=== PATIENT | female | born 1955 | race Caucasian/White ===

== ENCOUNTER 2017-01-02 16:10 | Observation (INO) ==
--- NOTE | 2017-01-02 16:22 | Emergency Department Note ---
Disposition Clinical Impression: Chest pain Qualifiers: Chest pain type: unspecified Qualified Code(s): R07.9 - Chest pain, unspecified Headache Qualifiers: Headache type: unspecified Headache chronicity pattern: unspecified pattern Intractability: not intractable Qualified Code(s): R51 - Headache Disposition: Admitted As Inpatient Condition: Fair Referrals: Edmond Vazquez Jr, MD [Primary Care Provider] - Forms: Work/School Release, ED Satisfaction Letter Time of Disposition: 16:24 General Adult HPI - General Chief complaint: ED General Medical Stated complaint: Sent by armando Bar Time Seen by Provider: 01/02/17 16:17 Source: patient Limitations: no limitations Nursing Notes Reviewed: Yes Vital Signs Reviewed: Yes - History of Present Illness HPI Narrative: History 1-year-old who I saw earlier today with the dizziness and some arm of discomfort. We did a CT scan cardiac workup which was negative. The patient went and saw her doctor and they sent her back and wanting her admitted for an MRI of the brain and a stress test. Pt Subjective Complaint: Headache chest pain Onset (ago): day(s) Location: head, chest Radiation: non-radiation Pain Scale: 3 Quality: aching Consistency: constant Improves with: nothing Worsens with: nothing Associated symptoms: Reports: chest pain, headaches Treatments Prior to Arrival: none - Related Data Previous Rx's Medication Instructions Recorded LORazepam [Ativan] 0.5 mg PO TID #9 tablet 02/16/16 Allergies Allergy/AdvReac Type Severity Reaction Status Date / Time codeine Allergy See Verified 01/02/17 16:13 Comments Constitutional: Denies: fever, chills, weakness, weight change Eyes: Denies: eye pain, eye discharge, vision change ENT ED: Denies: ear pain, throat pain, dental pain, hearing loss, epistaxis, congestion, dysphagia Cardiovascular: Reports: chest pain. Denies: palpitations, dyspnea on exertion , edema, syncope Respiratory: Denies: cough, dyspnea, wheezes, hemoptysis, stridor Gastrointestinal: Denies: abdominal pain, nausea, vomiting, diarrhea, constipation, hematemesis, melena, hematochezia Genitourinary: Denies: dysuria, frequency, hematuria, discharge Musculoskeletal: Denies: back pain, neck pain, arthralgia, myalgia Integumentary: Denies: rash, abrasion, lesions Neurological: Reports: headache. Denies: weakness, numbness, paresthesias, confusion, abnormal gait, vertigo Psychiatric: Denies: anxiety, depression, suicidal thoughts, homicidal thoughts , auditory hallucinations, visual hallucinations Endocrine: Denies: fatigue Hematological/Lymphatic: Denies: easy bleeding, easy bruising Allergic/Immunologic: Denies: facial swelling, urticaria Past Medical History - Past Medical History Medical history: Reports: diabetes, hypertension Psychiatric history: Reports: anxiety, depression BREAD RACKER history: Reports: no BREAD RACKER history - Social History Smoking Status: Never smoker Smokeless Tobacco Status: No Alcohol use: Reports: none Drug use: Reports: none Physical Exam - General Limitations: no limitations General appearance: alert, in no apparent distress - Head Head exam: atraumatic, normocephalic, normal inspection - Eye Eye exam: Present: normal appearance, PERRL, EOMI - ENT ENT exam: normal exam, normal oropharynx, mucous membranes moist - Neck Neck exam: Present: normal inspection, full ROM, trachea midline - Chest Chest inspection: Present: normal inspection, symmetric chest wall rise - Respiratory Respiratory exam: Present: normal lung sounds bilaterally - Cardiovascular Cardiovascular exam: Present: regular rate, normal rhythm, normal heart sounds - Abdominal Exam Abdominal exam: Present: soft, Non-Tender. Absent: tenderness, distention, guarding, rebound, rigidity - Extremities Exam Extremities exam: Present: normal inspection, full ROM. Absent: tenderness, pedal edema - Expanded Lower Extremity Exam Neurovascular/Tendon exam: Absent: motor deficit, sensory deficit, tendon deficit Gait: observed and normal - Back Exam Back exam: Present: normal inspection, full ROM. Absent: tenderness - Neurological Exam Neurological exam: Present: alert, oriented X3, normal gait. Absent: motor sensory deficit - Psychiatric Psychiatric exam: Present: normal affect, normal mood - Skin Skin exam: Present: warm, dry, intact, normal color Course - Reevaluation(s) Reevaluation #1: Patient was seen earlier in today for chest pain and headache CT scan was negative cardiac workup was negative recommendations at that time was to admit the patient however the patient declined she went and saw her family doctor and they sent her back in and wanted her to be admitted also wanted an MRI she's had recent memory loss. Time: 16:59 - Consultations Consultation #1: Discussed with Milvia Jiménez, nurse practitioner, admit. Time: 17:00 Vital Signs Temperature 97.8 F 01/02/17 16:13 Pulse Rate 79 01/02/17 16:13 Respiratory Rate 15 01/02/17 16:13 Blood Pressure 146/80 01/02/17 16:13 O2 Sat by Pulse Oximetry 94 01/02/17 16:13 Temperature 97.8 F 01/02/17 16:13 Pulse Rate 79 01/02/17 16:13 Respiratory Rate 15 01/02/17 16:13 Blood Pressure 146/80 01/02/17 16:13 O2 Sat by Pulse Oximetry 94 01/02/17 16:13 Oxygen Delivery Oxygen Delivery Room Air Medical Decision Making - Lab Data Lab results reviewed: Yes I reviewed the patient's lab results. - EKG Data EKG #1 EKG attestation: Yes I reviewed and interpreted this EKG. EKG shows normal: sinus rhythm Rate: normal Rhythm: NSR Interpretation: no acute changes NIH Stroke Scale - Level of Consciousness LOC: Alert - LOC Questions LOC Questions: Answers both correctly - LOC Commands LOC Commands: Performs both correctly - Best Gaze Best Gaze: Normal - Visual Visual: No visual loss - Facial Palsy Facial Palsy: Normal - Motor Arms Motor Arm-Left: No drift for 10 seconds Motor Arm-Right: No drift for 10 seconds - Motor Legs Motor Leg-Left: No drift for 5 seconds Motor Leg-Right: No drift for 5 seconds - Limb Ataxia Limb Ataxia: Normal, No Ataxia - Sensory Sensory: Normal - Best Language Best Language: No aphasia - Dysarthria Dysarthria: Normal - Extinction and Inattention Extinction and Inattention: Normal - NIHSS Total Score NIHSS Total Score: 0
[2017-01-02] MEDS ORDERED: *HR* LORazepam 1 MG TABLET PO ONE (17:51)
[2017-01-02] MEDS ORDERED: Naloxone 0.4 MG/ML INJ IVP PRN (19:44)
[2017-01-02] MEDS ORDERED: Ondansetron 4 MG/2 ML VIAL IVP PRN (19:44)
--- NOTE | 2017-01-02 20:07 | Internal Med History&Physical ---
Date of Encounter: 01/02/17 Time of Encounter: 19:35 Assessment and Plan (1) Tingling of left upper extremity Current visit: Yes Status: Acute Patient has been seen earlier in the day for several complaints. CT of the head is negative and cardiac workup was negative. Patient has been sent back to the ED by her painting supervisor for stress test and MRI of the brain. No focal deficits at this time. Patient has been started on aspirin and statin. Chest x-ray also done this morning is normal. (2) Dizziness Current visit: Yes Status: Acute symptoms of dizziness now improved. Unclear etiology. CT head done in the ED this morning is negative. Stress test has been ordered. No chest pain or shortness of breath. Continue aspirin and statin. (3) Generalized weakness Current visit: Yes Status: Acute (4) Anxiety Current visit: Yes Status: Acute Continue home meds (5) Hypertension Current visit: Yes Status: Acute Controlled continue her medications and monitor. Qualifiers: Hypertension type: essential hypertension Qualified Code(s): I10 - Essential (primary) hypertension (6) Diabetes mellitus Current visit: Yes Status: Acute , Type 2 diabetes, [id number], hyperglycemia. Continue sliding scale and glucose checks. Qualifiers: Diabetes mellitus type: type 2 Diabetes mellitus complication detail: with peripheral angiopathy without gangrene Diabetes mellitus automatic toe laster insulin use : without automatic toe laster use Qualified Code(s): E11.51 - Type 2 diabetes mellitus with diabetic peripheral angiopathy without gangrene (7) DVT prophylaxis Current visit: Yes Status: Acute Continue heparin subcutaneous Internal Medicine - H&P: HPI Admitted From: Emergency Dept History of present illness: Ms. Jones is a 61 year old female with past medical history anxiety, depression , hypertension and diabetes and peripheral neuropathy and hypothyroidism. Patient presented to the ED with complaints of dizziness earlier today. She also had some left arm tingling and discomfort. Initial workup done in view of the CT scan and cardiac workup was negative. Patient was sent back home. Patient went to see her painting supervisor later in the day. She told her physician about her complaints including dizziness nausea and left arm tingling and discomfort. Patient was advised to the ED for a stress test and an MRI of the brain. Patient at present denies chest pain, denies denies shortness of breath or abdominal pain or headache. She complains of mild dizziness and nausea this time. She also complains of generalized weakness. Labs done this morning in the ED are within normal limits and a CT of the head is normal. Patient is being admitted for MRI of the brain and also stress test. Patient can most likely discharged if this is negative. She has no other complaints at present. EKG shows normal sinus rhythm. Patient is awake and alert and able to provide all history. Past Med Surg Social Fam HX - Past Medical History Medical history: diabetes, hypertension Psychiatric history: anxiety, depression - Past Surgical History Surgical History: cataract (b/l), hysterectomy, knee replacement (left - 8 weeks ago) - Social History Smoking Status: Never smoker Smokeless Tobacco Status: No Alcohol use: none Drug use: none - Family History Mother Hx Family Cancer: Yes (uterine) Sister Living Status: Still Living Hx Family Cardiac Disorders: Yes Internal Medicine - H&P: Meds Diclofenac Sodium [Voltaren] 75 mg PO BID 01/02/17 [History] Duloxetine HCl [Cymbalta] 60 mg PO DAILY 01/02/17 [History] Furosemide [Lasix] 40 mg PO DAILY 01/02/17 [History] Gabapentin [Neurontin] 800 mg PO BID 01/02/17 [History] Levothyroxine [Synthroid] 88 mcg PO 0630 01/02/17 [History] Metformin HCl [Metformin HCl ER] 1,000 mg PO QPM 01/02/17 [History] Metoprolol XL (24 HR) Succ [Toprol XL] 50 mg PO DAILY 01/02/17 [History] Potassium Chloride [K-Tab ER] 20 meq PO DAILY 01/02/17 [History] Allergies codeine Allergy (Verified 01/02/17 16:13) See Comments severe stomach pains All Systems PM: A 10-system review of systems was performed and is negative for pertinent findings except as documented above in the HPI. - Constitutional Constitutional: as per HPI, weakness - EENT Eyes: no blurry vision, no change in vision, no loss of vision - Cardiovascular Cardiovascular ROS IM: lightheadedness, no chest pain, no dyspnea, no dyspnea on exertion - Respiratory Respiratory: no cough, no dyspnea, no hemoptysis, no dyspnea on exertion, no wheezing, no chest congestion - Gastrointestinal Gastrointestinal: no abdominal pain, no bloating, no constipation, no diarrhea - Musculoskeletal Musculoskeletal ROS IM: arthralgias - Neurological Neurological ROS: memory loss, tingling (Left arm), no abnormal gait, no abnormal speech, no focal weakness, no loss of vision, no numbness - Psychiatric Psychiatric: as per HPI - Constitutional Vitals: Temp Pulse Resp BP Pulse Ox 98.2 F 78 15 115/70 96 01/02/17 19:53 01/02/17 19:53 01/02/17 19:53 01/02/17 19:53 01/02/17 19:53 General appearance: Present: A&O X 3, morbidly obese, no acute distress, answers questions appropriately - Head Head exam: Present: atraumatic - ENT ENT exam: Present: mucous membranes moist - Neck Neck exam general surgery: Present: supple - Respiratory Respiratory exam: Present: CTAB. Absent: rhonchi, wheezes - Cardiovascular Cardiovascular exam: Present: RRR, +S1, +S2 - GI/Abdominal GI/Abdominal exam: Present: distended (obese), soft. Absent: guarding, tenderness - Extremities Exam Extremities exam: Present: radial pulses palpable and symetrical. Absent: cyanotic, pedal edema, tenderness - Neurological Exam Neurological exam: Present: alert, oriented X3, no focal deficits, strengths equal and symetr throughout. Absent: speech deficit
[2017-01-02] MEDS ORDERED: D5% in Water 1,000 ML IVC PRN (20:18)
[2017-01-02] MEDS ORDERED: Dextrose Gel 15 GM PO PRN ×2 (20:18)
[2017-01-02] MEDS ORDERED: *HR* Dextrose 50 % in Water (Syg) 50 ML SYRINGE IVP PRN (20:18)
[2017-01-02] MEDS: Famotidine 20 MG TABLET PO SCH (22:15)
[2017-01-02] MEDS: *HR* Heparin 5,000 UNIT/ML VIAL SQ SCH (22:15)
[2017-01-02] MEDS: Aspirin 325 MG TABLET PO SCH (22:15)
[2017-01-03 04:10] LABS: Basophils % 0.5 %; Eosinophils # 0.3 K/mcL (0.0-0.6); Eosinophils % 3.1 %; Hematocrit 36.7 % (35.3-44.9); Hemoglobin 11.6 g/dL (11.5-15.4); Immature Granulocytes % 0.3 % (0-4); Immature Platelets 2.9 % (1.1-6.1); Lymphocytes # 2.8 K/mcL (0.6-4.6); Lymphocytes % 31.4 %; Mean Corpuscular HGB Conc 31.6 g/dL (31.6-35.5); Mean Corpuscular Hemoglobin 30.3 pg (28.0-33.3); Mean Corpuscular Volume 95.8 fL (83.0-100.0); Mean Platelet Volume 9.6 fL (9.4-12.4); Monocytes # 0.6 K/mcL (0.0-1.3); Monocytes % 6.6 %; Neutrophils # 5.1 K/mcL (1.6-8.9); Platelet Count 207 K/mcL (140-400); Red Blood Count 3.83 M/mcL (3.82-4.97); Red Cell Distribution Width 13.3 % (11.5-14.5); Segmented Neutrophils % 58.1 %
[2017-01-03 04:24] LABS: BUN/Creatinine Ratio 15 (6-26); Blood Urea Nitrogen 17 mg/dL (7-20); Calcium 9.3 mg/dL (8.6-10.8); Carbon Dioxide 27 mEq/L (19-29); Chloride 103 mEq/L (98-109); Chol/HDL Ratio 7.1 (0-4.9); Cholesterol 170 mg/dL (< 200); Glucose 202 mg/dL (70-99); HDL Cholesterol 24 mg/dL (40-59); Osmolality,Calculated 293 (280-300); Potassium 3.7 mEq/L (3.5-4.5); Sodium 138 mEq/L (136-145); Triglycerides 473 mg/dL (< 150); eGFR For African Americans 59 (> 60); eGFR For Non-African Americans 49 (> 60)
[2017-01-03] MEDS: *HR* Heparin 5,000 UNIT/ML VIAL SQ SCH ×3 (05:25→20:49)
[2017-01-03] MEDS: Insulin LISPRO 300 UNITS/3 ML VIAL SQ SCH ×4 (06:02→18:18)
[2017-01-03] MEDS ORDERED: Regadenoson 0.4 MG/5 ML SYRINGE IVP ONE (06:28)
[2017-01-03] MEDS: Metoprolol XL (24 HR) Succ 50 MG TAB.ER.24H PO SCH (12:19)
[2017-01-03] MEDS: Famotidine 20 MG TABLET PO SCH ×2 (12:20→20:49)
[2017-01-03] MEDS: Acetaminophen 325 MG TABLET PO PRN (12:20)
[2017-01-03] MEDS: Furosemide 40 MG TABLET PO SCH (12:20)
[2017-01-03] MEDS: Aspirin 325 MG TABLET PO SCH (12:20)
--- NOTE | 2017-01-03 14:25 | Electrocardiograph Report ---
[address] [address] Test Date: 2017-01-02 Pat Name: Yesenia Jones Department: 105 Room: 3B21 Gender: F Java Web Architect: : 1955 Requested By: Taras Montenegro Order Number: [id number] Reading MD: Mode Ortiz MD Measurements Intervals [place] Rate: 79 P: 62 MT: 140 QRS: 19 QRSD: 95 T: 47 QT: 372 QTc: 406 Interpretive Statements SINUS RHYTHM BASELINE ARTIFACT Electronically Signed On 01-03-2017 14:23:15 EDT by Mode Ortiz MD
--- NOTE | 2017-01-03 15:54 | Internal Med Progress Note ---
Date of Encounter: 01/03/17 Time of Encounter: 09:00 - Assessment and plan (1) Tingling of left upper extremity Current Visit: Yes Status: Acute Assessment and plan: Patient reports that 2 nights ago she does not pronate and had not been to sleep. She said that she felt "antsy". Yesterday at 5 AM she got up to take some Tylenol PM, shiny and having left arm pain, then left hand was tingly. She said the pain radiated up her arm into her left neck, and into her left chest. She did report shortness of breath, chest heaviness and headache prior to the onset of the arm pain. She said that anytime she made it to the emergency room she was having dry heaves. She reports that she has independently decreased her gabapentin from 1600 mg a day to 800 mg a day, yesterday was day 7.. She presented to the emergency department for these symptoms, it was recommended that she was admitted. She decided to leave and go to see Dr. Hoffman, with whom she had an appointment anyway. Dr. Hoffman sent her immediately back to the emergency department for evaluation of the chest pain and admission and for rain MRI and stress test. She has no tingling or pain in her left arm now. She denies headache. She denies any anxiety symptoms at all. Grasps are strong and equal bilaterally. She is neurologically intact, face is symmetrical. (2) Paresthesia Current Visit: Yes Status: Acute Assessment and plan: Plan as above. Resolved currently. (3) Chest pain Current Visit: Yes Status: Acute Assessment and plan: Plan as above. Patient denies chest pain now. Stage II a stress test tomorrow. Qualifiers: Chest pain type: unspecified Qualified Code(s): R07.9 - Chest pain, unspecified (4) Anxiety Current Visit: Yes Status: Acute Assessment and plan: Plan as above. 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 She also reports that she has independently, and without medical supervision decreased her gabapentin from 1600 mg a day to 800 mg a day. She said that yesterday was day 7. She does say that she feels that all the symptoms are related to anxiety and decreasing the gabapentin. She reports recent memory loss. She also blames on the gabapentin. She says that she has to be able to take care of her cannot be heavily medicated. There is not eligible for home health or any kind of assistance due to income. Social service consult is in. (5) Diabetes mellitus Current Visit: Yes Status: Acute Assessment and plan: Diabetic diet A1c 7% Sliding scale insulin Accu-Cheks before meals and at bedtime Qualifiers: Diabetes mellitus type: type 2 Diabetes mellitus complication detail: with peripheral angiopathy without gangrene Diabetes mellitus custodial insulin use : without custodial use Qualified Code(s): E11.51 - Type 2 diabetes mellitus with diabetic peripheral angiopathy without gangrene (6) ROXANE (acute kidney injury) Current Visit: Yes Status: Acute Assessment and plan: No history. Creatinine is only slightly elevated at 1.13. GFR is 49. We will continue to monitor her labs Avoid nephrotoxins (7) DVT prophylaxis Current Visit: Yes Status: Acute Assessment and plan: Heparin subcutaneous daily. - Time Spent With Patient less than 15 minutes - Subjective Interval history: Patient was seen and assessed at about 9 AM. This morning at 5 AM she began having pain in her left arm, then her left hand became tingly. She reports that the pain went into her left neck and left chest. She reported shortness of breath, chest heaviness, and frontal headache prior to the onset of the arm pain at 5 AM. At 5 AM she awakened and took 2 Tylenol PM and attempted to go back to sleep. She said that she has been "antsy" and had been up all night had not slept at all. Yesterday was day 7 of her independently decreasing her gabapentin from 1600 mg a day to 800 mg a day. She also reports that she has been having increasing forgetfulness and memory loss over the last few months. She says that Dr. Hoffman does not believe that it is due to the gabapentin, however patient has decided to wean herself off the gabapentin. She may have done this to fast causing some withdrawal symptoms. She was seen in the emergency department yesterday, he was recommended that she be admitted for further evaluation for chest pain. Patient left and insisted on seeing Dr. Hoffman instead. Once at Dr. Willard's office, she has that the patient come back for MRI of the head and a stress test. Patient is having a 2 day stress test. She currently denies any numbness, tingling, or pain to left arm. There is no chest pain. - Constitutional Vitals: Temp Pulse Resp BP Pulse Ox 97.4 F L 74 16 162/84 94 01/03/17 15:42 01/03/17 15:42 01/03/17 15:42 01/03/17 15:42 01/03/17 15:42 General appearance: Present: cooperative, A&O X 3, morbidly obese, no acute distress, answers questions appropriately - Head Head exam: Present: normal inspection - Eye Eye exam: Present: normal appearance, conjuntiva pink - ENT ENT exam: Present: mucous membranes moist, normal exam - Neck Neck exam general surgery: Present: normal inspection. Absent: lymphadenopathy , tenderness - Respiratory Respiratory exam: Present: CTAB. Absent: chest wall tenderness, rales, rhonchi , stridor, wheezes - Cardiovascular Cardiovascular exam: Present: RRR, +S1, +S2. Absent: bradycardia, diastolic murmur, systolic murmur, tachycardia - GI/Abdominal GI/Abdominal exam: Present: normal bowel sounds, soft. Absent: hepatomegaly, tenderness - Extremities Exam Extremities exam: Present: normal inspection, warm, radial pulses palpable and symetrical. Absent: pedal edema, tenderness - Neurological Exam Neurological exam: Present: alert, oriented X3, strengths equal and symetr throughout. Absent: motor sensory deficit, no focal deficits, pronater drift, facial droop, speech deficit - Skin Skin exam: Present: dry, normal color, warm. Absent: rash Internal Medicine: Result - Labs CBC & Chem 7: 01/03/17 03:53 01/03/17 03:53 Labs: Short CBC 01/03/17 Range/Units 03:53 WBC 8.8 (4.3-11.1) K/mcL Hgb 11.6 (11.5-15.4) g/dL Hct 36.7 (35.3-44.9) % Plt Count 207 (140-400) K/mcL Neutrophils # 5.1 (1.6-8.9) K/mcL BMP 01/03/17 03:53 Sodium 138 Potassium 3.7 Chloride 103 Carbon Dioxide 27 BUN 17 Creatinine 1.13 H Glucose 202 H Calcium 9.3 Cardiac Enzymes 01/02/17 01/03/17 Range/Units 20:23 03:53 Troponin I 0.00 0.00 (0-0.03) ng/mL - Impressions Impressions Brain MRI 01/03/17 08:34 IMPRESSION: Normal MRI of the brain. D/ / Thad Smallwood MD / Thad Smallwood MD Interpreting Provider: Thad Smallwood MD Consult Discharge Plan - Plan Referrals: Edmond Vazquez Jr, MD [Primary Care Provider] -
[2017-01-04] MEDS: Insulin LISPRO 300 UNITS/3 ML VIAL SQ SCH ×3 (00:09→12:18)
[2017-01-04] MEDS: Acetaminophen 325 MG TABLET PO PRN ×2 (00:18→09:31)
[2017-01-04 03:50] LABS: Basophils % 0.5 %; Eosinophils # 0.2 K/mcL (0.0-0.6); Eosinophils % 2.3 %; Hematocrit 38.5 % (35.3-44.9); Hemoglobin 12.3 g/dL (11.5-15.4); Immature Granulocytes % 0.4 % (0-4); Lymphocytes # 2.7 K/mcL (0.6-4.6); Lymphocytes % 32.9 %; Mean Corpuscular HGB Conc 31.9 g/dL (31.6-35.5); Mean Corpuscular Hemoglobin 30.5 pg (28.0-33.3); Mean Corpuscular Volume 95.5 fL (83.0-100.0); Mean Platelet Volume 9.9 fL (9.4-12.4); Monocytes # 0.6 K/mcL (0.0-1.3); Monocytes % 7.3 %; Neutrophils # 4.7 K/mcL (1.6-8.9); Platelet Count 206 K/mcL (140-400); Red Blood Count 4.03 M/mcL (3.82-4.97); Red Cell Distribution Width 13.4 % (11.5-14.5); Segmented Neutrophils % 56.6 %
[2017-01-04 04:09] LABS: BUN/Creatinine Ratio 15 (6-26); Blood Urea Nitrogen 15 mg/dL (7-20); Calcium 9.4 mg/dL (8.6-10.8); Carbon Dioxide 27 mEq/L (19-29); Chloride 104 mEq/L (98-109); Glucose 148 mg/dL (70-99); Osmolality,Calculated 294 (280-300); Sodium 140 mEq/L (136-145); eGFR For African Americans > 60 (> 60); eGFR For Non-African Americans 58 (> 60)
[2017-01-04] MEDS: *HR* Heparin 5,000 UNIT/ML VIAL SQ SCH (05:52)
[2017-01-04] MEDS: Metoprolol XL (24 HR) Succ 50 MG TAB.ER.24H PO SCH (09:31)
[2017-01-04] MEDS: Furosemide 40 MG TABLET PO SCH (09:32)
[2017-01-04] MEDS: Famotidine 20 MG TABLET PO SCH (09:32)
[2017-01-04] MEDS: Aspirin 325 MG TABLET PO SCH (09:32)
[2017-01-04] MEDS ORDERED: Gabapentin 400 MG CAPSULE PO SCH (10:15)
[2017-01-04] MEDS ORDERED: Diclofenac Sodium 75 MG TABLET PO SCH (10:15)
[2017-01-04 11:17] VITALS: BP 161/82
--- NOTE | 2017-01-04 12:18 | Nuclear Medicine Stress Report ---
Regadenoson Nuclear Stress Name: Yesenia Jones Date of Study: 01/03/2017 Date: 1955 Ht: 61.0 in Medical Record#: [id number] Age: 61 Wt: 272.0 lb Gender: Female Order #: [id number] Location: [facility] Room: [facility] Supervising Provider: Kennedy Cordova CNP Reading Physician: Jonathan Siddiqui MD, [facility] Ordering Physician: Leonila Hernandes CNP Primary Care Physician: Edmond Vazquez MD Stress Technologist: Malka Dalal MUTUEL CASHIER, CCT Dough Sheeter: Tima Singh Indications: Chest Pain Impression: Gated LVEF > 70%. Perfusion imaging was negative for ischemia or infarct. History: Hypertension Diabetes Hypercholesteremia Stress Test Summary: Stress Test Type: Pharmacologic Regadenoson 0.4mg/5ml given IV Baseline Information: Initial Heart Rate: 83 Blood Pressure: 132/60 Stress Information: Test Terminated Due to (primary): As per protocol Maximum Blood Pressure: 156/66 Maximum Heart Rate: 93 Percent Maximum Heart Rate Achieved: 58 Double Product: [id number] Symptoms: No chest symptoms Nuclear Summary: SPECT myocardial perfusion imaging using Tc99m Sestamibi given intravenously was performed at rest and following cardiac stress testing. The resting images were obtained following initial dose of 33 mCi. Following stress an additional dose of 33.6 mCi was given at peak exercise or 30 seconds post regadenoson infusion. Findings: Stress Note * Resting ECG demonstrated normal sinus rhythm. * No baseline arrhythmias were noted. * Patient had no chest pain during stress. * No arrhythmias were noted during stress. * No significant ECG changes with regadenoson. Hemodynamic responses * Normal hemodynamic responses to pharmacologic stress. Study Quality * Study quality is good. Gated EF > 70% * Gated LVEF > 70%. Left Ventricle * The left ventricle is not dilated. * Normal Segmental Perfusion in rest. * Normal segmental perfusion in stress. TID * No evidence of transient ischemic dilatation. Updated by Jonathan Siddiqui MD, [facility] on 01/04/2017 12:14:06 PM electronically signed on 01/04/2017 12:14:38 PM with status of Final
--- NOTE | 2017-01-04 13:00 | Discharge Summary ---
Date of Encounter: 01/04/17 Time of Encounter: 09:50 - Discharge Diagnosis (1) Tingling of left upper extremity Priority: Primary Status: Resolved Comments: Pt denies tingling or pain to LUE. Sensation and strength are at baseline. Pt has +1 left radial pulse and brisk capillary refill with adequate ROM. Most likely due to medication withdrawl and anxiety. Patient had normal MRI of the brain. Resolved. Brain MRI 01/03/17 08:34 IMPRESSION: Normal MRI of the brain. D/ / Thad Smallwood MD / Thad Smallwood MD Interpreting Provider: Thad Smallwood MD (2) Paresthesia Priority: Secondary Status: Resolved Comments: Resolved. (3) Chest pain Priority: Secondary Status: Acute Comments: Pt denies chest pain. Stress test completed and resulted today. Gated LVEF 70%, perfusion imaging was negative for ischemia or infarct. Troponins negative x 3, Chest xray negative for acute processes. Qualifiers: Chest pain type: unspecified Qualified Code(s): R07.9 - Chest pain, unspecified (4) Anxiety Priority: Secondary Status: Acute Comments: Patient agrees that she is under a lot of stress and has anxiety. She is caring for her who is primarily bedridden at home. She is also very concerned about finances at home. She will continue her Cymbalta at home. (5) Diabetes mellitus Priority: Secondary Status: Chronic Comments: A1c 7%. Continue home medications. Qualifiers: Diabetes mellitus type: type 2 Diabetes mellitus complication detail: with peripheral angiopathy without gangrene Diabetes mellitus bariatric physician insulin use : without bariatric physician use Qualified Code(s): E11.51 - Type 2 diabetes mellitus with diabetic peripheral angiopathy without gangrene (6) ROXANE (acute kidney injury) Priority: Secondary Status: Resolved Comments: Creatinine is returning to normal, BUN is 58 today. (7) DVT prophylaxis Priority: Secondary Status: Acute Comments: Heparin subcutaneous daily (8) Medication withdrawal Priority: Secondary Status: Acute Comments: Patient reports that she felt her gabapentin was causing her to become increasingly forgetful. She independently began decreasing her gabapentin from 1600 mg today to 800 mg a day. On the day of arrival to the emergency department was 7. She said that she had been not sleeping well and that she felt "antsy" all night and began having the left arm pain, chest pain, left arm tingling. She said that her pain has increased since decreasing the medication , which was also causing some anxiety. Apparently for the last 2 days when she has been in the hospital she has not been getting any gabapentin, whatsoever. She says that Dr. Hoffman encouraged her to go back up to 1600 mg, however she wanted to stay at 800 mg. We have changed it to 400 mg by mouth twice daily after discussion with the patient. Qualifiers: Substance type: other psychostimulant Qualified Code(s): F15.93 - Other stimulant use, unspecified with withdrawal - Discharge Medications Prescriptions: Gabapentin [Neurontin] 400 mg PO BID #30 capsule Home Medications: Diclofenac Sodium [Voltaren] 75 mg PO BID 01/02/17 [History] Duloxetine HCl [Cymbalta] 60 mg PO DAILY 01/02/17 [History] Furosemide [Lasix] 40 mg PO DAILY 01/02/17 [History] Levothyroxine [Synthroid] 88 mcg PO 0630 01/02/17 [History] Metformin HCl [Metformin HCl ER] 1,000 mg PO QPM 01/02/17 [History] Metoprolol XL (24 HR) Succ [Toprol Xl] 50 mg PO DAILY 01/02/17 [History] Potassium Chloride [K-Tab ER] 20 meq PO DAILY 01/02/17 [History] Gabapentin [Neurontin] 400 mg PO BID #30 capsule 01/04/17 [Rx] Allergies/Adverse Reactions: Allergies codeine Allergy (Verified 01/02/17 16:13) See Comments severe stomach pains Procedures/tests Complete & Pending: Procedures Performed prior 72 hours Category Date Time Status NM baltazar perf SPECT multi [NM] Routine Exams 01/02/17 19:48 Taken MR head/brain wo con [MR] Routine MRI 01/03/17 08:34 Completed ECG 12 lead ECG [ECG] AM 0600 Y 01/03/17 06:00 Ordered SP pharm nuclear stress Routine Y 01/03/17 07:10 Completed Date of admission: 01/02/17 18:18 Primary care physician: Edmond Vazquez Jr, MD Consults: 01/02/17 21:06 Consult to Physical Therapy [CONS] Routine Comment: Evaluate, develop and implement POC Reason for Consult: BALBIR esquivel 01/02/17 21:18 Consult to Certified Medical Coder [CONS] Routine Reason for SW Consult: FINANCIAL CONCERNS WITH STAY, CARE FOR OTHER AT HOME. Discharging clinician: Leonila Hernandes Anticipated date of discharge: 01/04/17 - Patient Status Disposition: Home, Self-Care Condition: Good Functional capacity at discharge: independent ambulation Overall status at discharge: patient is back to baseline - Discharge Instructions Follow Up With: Edmond Vazquez Jr, MD [Primary Care Provider] - 01/11/17 11:00 am Additional Instructions: Follow up with Dr. Hoffman and Dr. Vazquez within the next week to 10 days for a follow up. You will need to ask them for a refill for your Gabapentin, I gave you enough for 2 weeks. Resume the rest of your home medications. Return to the ER for any other problems or concerns or if your symtpoms return. - Diet and Activity Activity: increase activity as tolerated Diet: diabetic diet Interval History: Pt presented to the ED on 01/02/17 with c/o L arm pain that radiated into L shoulder, neck, and chest, L arm tingling, SOG, chest heaviness, and headache. Pt states that she had been "antsy" all night and she got up at 0500 to take some Tylenol PM to help her sleep when her symptoms began. She said that she slept for a while, awakened and was still having symptoms and by the time she made it to the ER she was dry heaving. She reports increased stress at home and that she is the sole caregiver for her who is bed-ridden. She states that they are both on disability and that they are having a hard time with bills. She reports that she has had increasing memory loss over the last year and that she feels like it is due to her high dose of Gabapentin. She independently decreased her dose from 1600mg/day to 800/mg day in an attempt to stop taking it altogheter. She says that her pain had increased, which seemed to cause her some anxiety. Most likely the cause of the tinlging, pain, headache is due to anxiety and medication withdrawl. Pt was in the ED twice the day of admission, the first time she left AMA to go to see Dr. Hoffman, who sent her back to the ED for admission, stress test, and brain MRI. MRI was negative, stress test imaging was negative for ischemia or infarct, gated EF >70%. All of pt's symptoms have resolved. She is alert and engaging, pleasant, physical exam is unremarkable. Labs are WNL other than triglycerides, that have had a significant increase since August. We discussed not totally stopping her Gabapentin. She states that Dr. Hoffman wants her to incresase it to 1600mg/day, as it was. Pt wishes to stay at 800mg/ day. We agreed on dividing it into 2 doses and she will speak with Dr. Hoffman about increasing or stopping it at the next visit. Pt is pain free and ready for discharge. Hospital course: Ms. Jones is a 61 year old female - Time Spent with Patient Total time spent providing and/or coordinating discharge services: Less than 30 minutes - Constitutional Vitals: Temp Pulse Resp BP Pulse Ox 97.8 F 71 13 161/82 93 01/04/17 11:16 01/04/17 11:16 01/04/17 11:16 01/04/17 11:16 01/04/17 11:16 General appearance: Present: cooperative, A&O X 3, morbidly obese, pleasant, no acute distress, answers questions appropriately - Head Head exam: Present: normal inspection - Eye Eye exam: Present: normal appearance, conjuntiva pink. Absent: nystagmus - ENT ENT exam: Present: mucous membranes moist, normal exam, normal external ear exam - Neck Neck exam general surgery: Present: normal inspection. Absent: lymphadenopathy , tenderness - Respiratory Respiratory exam: Present: CTAB. Absent: rales, respiratory distress, rhonchi, wheezes - Cardiovascular Cardiovascular exam: Present: RRR, +S1, +S2. Absent: diastolic murmur, systolic murmur - GI/Abdominal GI/Abdominal exam: Present: distended, normal bowel sounds, soft, splenomegaly. Absent: hepatomegaly, tenderness - Extremities Exam Extremities exam: Present: normal capillary refill, warm, radial pulses palpable and symetrical. Absent: pedal edema, tenderness - Neurological Exam Neurological exam: Present: alert, oriented X3, no focal deficits, strengths equal and symetr throughout. Absent: facial droop, speech deficit - Skin Skin exam: Present: dry, normal color, warm. Absent: rash
[2017-01-04] MEDS ORDERED: Insulin LISPRO 300 UNITS/3 ML VIAL SQ SCH ×2 (16:30→21:00)
== END 2017-01-04 14:17 | disposition home or self-care (01) ==
LOC: EMEROO 16:10 → 3BNU 16:10
PROVIDERS: ADMIT Registered Nurse; ATTEND Registered Nurse

== ENCOUNTER 2021-03-17 04:18 | Observation (INO) ==
[2021-03-17 05:03] LABS: Basophils % 0.3 %; Eosinophils # 0.1 K/mcL (0.0-0.6); Eosinophils % 1.2 %; Hematocrit 38.8 % (35.3-44.9); Immature Granulocytes % 0.3 % (0-4); Lymphocytes # 1.7 K/mcL (0.6-4.6); Lymphocytes % 19.5 %; Mean Corpuscular HGB Conc 30.9 g/dL (31.6-35.5); Mean Corpuscular Hemoglobin 26.8 pg (28.0-33.3); Mean Corpuscular Volume 86.8 fL (83.0-100.0); Mean Platelet Volume 9.9 fL (9.4-12.4); Monocytes # 0.7 K/mcL (0.0-1.3); Monocytes % 7.9 %; Neutrophils # 6.2 K/mcL (1.6-8.9); Platelet Count 158 K/mcL (140-400); Red Blood Count 4.47 M/mcL (3.82-4.97); Red Cell Distribution Width 15.8 % (11.5-14.5); Segmented Neutrophils % 70.8 %; White Blood Count 8.8 K/mcL (4.3-11.1)
[2021-03-17 05:24] LABS: BUN/Creatinine Ratio 16 (6-26); Blood Urea Nitrogen 15 mg/dL (8-23); Calcium 9.6 mg/dL (8.6-10.3); Carbon Dioxide 26 mEq/L (23-29); Chloride 99 mEq/L (98-107); Glucose 293 mg/dL (70-105); Osmolality,Calculated 290 (280-300); Potassium 3.9 mEq/L (3.5-5.1); Sodium 134 mEq/L (136-145); eGFR For African Americans > 60 (> 60); eGFR For Non-African Americans > 60 (> 60)
[2021-03-17 05:25] LABS: Troponin I < 0.03 ng/mL (< 0.04)
[2021-03-17 07:00] LABS: INR 1.1; Prothrombin Time 12.5 Seconds (9.4-12.1)
[2021-03-17 08:14] LABS: Influenza A PCR Negative (Negative); Influenza B PCR Negative (Negative); Resp. Syncytial Virus PCR Negative (Negative)
[2021-03-17 08:20] LABS: SARS-CoV-2 by PCR (In House) Negative (Negative)
[2021-03-17] MEDS ORDERED: Aspirin 325 MG TABLET PO ONE (09:30)
[2021-03-17] MEDS ORDERED: Naloxone 0.4 MG/ML INJ IVP PRN (10:11)
[2021-03-17] MEDS ORDERED: Regadenoson 0.4 MG/5 ML SYRINGE IVP ONE (12:09)
[2021-03-17 14:31] VITALS: BP 166/80; PULSE 84; TEMP 98.5; O2SAT 96
[2021-03-18 12:11] LABS: Estimated Average Glucose 217 mg/dl; Hemoglobin A1C 9.2 %
== END 2021-03-17 15:20 | disposition home or self-care (01) ==
LOC: CDU 04:18 → EMEROOARM 04:18 → CDU 12:03
PROVIDERS: ADMIT Internal Medicine; ATTEND Internal Medicine

== ENCOUNTER 2021-04-06 23:31 | Inpatient (IN) ==
[2021-04-07 00:09] LABS: Basophils % 0.3 %; Eosinophils % 0.3 %; Hematocrit 33.8 % (35.3-44.9); Hemoglobin 10.8 g/dL (11.5-15.4); Immature Granulocytes % 0.5 % (0-4); Lymphocytes # 0.7 K/mcL (0.6-4.6); Lymphocytes % 17.5 %; Mean Corpuscular Hemoglobin 27.6 pg (28.0-33.3); Mean Corpuscular Volume 86.4 fL (83.0-100.0); Mean Platelet Volume 10.6 fL (9.4-12.4); Monocytes # 0.3 K/mcL (0.0-1.3); Monocytes % 7.6 %; Neutrophils # 2.9 K/mcL (1.6-8.9); Platelet Count 103 K/mcL (140-400); Red Blood Count 3.91 M/mcL (3.82-4.97); Red Cell Distribution Width 16.7 % (11.5-14.5); Segmented Neutrophils % 73.8 %
[2021-04-07 00:21] LABS: BUN/Creatinine Ratio 14 (6-26); Blood Urea Nitrogen 11 mg/dL (8-23); Calcium 8.4 mg/dL (8.6-10.3); Carbon Dioxide 24 mEq/L (23-29); Chloride 99 mEq/L (98-107); Glucose 329 mg/dL (70-105); Osmolality,Calculated 288 (280-300); Potassium 4.1 mEq/L (3.5-5.1); Sodium 133 mEq/L (136-145); eGFR For African Americans > 60 (> 60); eGFR For Non-African Americans > 60 (> 60)
[2021-04-07 00:22] LABS: Troponin I < 0.03 ng/mL (< 0.04)
[2021-04-07] MEDS ORDERED: Isovue-370 500 ML BOTTLE IVP ONE (02:22)
[2021-04-07] MEDS ORDERED: Naloxone 0.4 MG/ML INJ IVP PRN (03:00)
[2021-04-07] MEDS ORDERED: Ondansetron 4 MG/2 ML VIAL IVP PRN (03:00)
[2021-04-07] MEDS ORDERED: Ipratropium 1 PUFF INHALER IH PRN (03:01)
[2021-04-07] MEDS ORDERED: D5% in Water 1,000 ML IVC PRN (03:22)
[2021-04-07] MEDS ORDERED: Dextrose Gel 15 GM/37.5 ML TUBE PO PRN ×2 (03:22)
[2021-04-07] MEDS ORDERED: *HR* Dextrose 50 % in Water (Syg) 50 ML SYRINGE IVP PRN (03:22)
[2021-04-07] MEDS ORDERED: Insulin DETEMIR 100 UNIT/ML X5UNITS SUBQ SCH (04:00)
[2021-04-07] MEDS ORDERED: Insulin LISPRO 300 UNITS/3 ML VIAL SUBQ SCH (04:00)
[2021-04-07] MEDS: *HR* Enoxaparin 40 MG/0.4 ML SYRINGE SQ SCH (04:31)
[2021-04-07 05:12] LABS: Hematocrit 34.2 % (35.3-44.9); Hemoglobin 10.7 g/dL (11.5-15.4); Mean Corpuscular HGB Conc 31.3 g/dL (31.6-35.5); Mean Corpuscular Hemoglobin 27.5 pg (28.0-33.3); Mean Corpuscular Volume 87.9 fL (83.0-100.0); Mean Platelet Volume 10.9 fL (9.4-12.4); Platelet Count 110 K/mcL (140-400); Red Blood Count 3.89 M/mcL (3.82-4.97); Red Cell Distribution Width 16.7 % (11.5-14.5); White Blood Count 3.6 K/mcL (4.3-11.1)
[2021-04-07 05:24] LABS: BUN/Creatinine Ratio 15 (6-26); Blood Urea Nitrogen 12 mg/dL (8-23); C-Reactive Protein 141 mg/L (Less than 10); Calcium 8.5 mg/dL (8.6-10.3); Carbon Dioxide 25 mEq/L (23-29); Chloride 99 mEq/L (98-107); Glucose 361 mg/dL (70-105); Osmolality,Calculated 288 (280-300); Potassium 4.6 mEq/L (3.5-5.1); Sodium 132 mEq/L (136-145); eGFR For African Americans > 60 (> 60); eGFR For Non-African Americans > 60 (> 60)
[2021-04-07 05:42] LABS: Ferritin 80 ng/mL (10-120)
[2021-04-07] MEDS: Insulin LISPRO 300 UNITS/3 ML VIAL SUBQ SCH ×5 (07:58→20:28)
[2021-04-07] MEDS: Insulin DETEMIR 100 UNIT/ML X5UNITS SUBQ SCH (20:28)
[2021-04-08] MEDS ORDERED: Melatonin 3 MG TABLET PO ONE (00:42)
[2021-04-08] MEDS: *HR* Enoxaparin 40 MG/0.4 ML SYRINGE SQ SCH (05:04)
[2021-04-08] MEDS: Insulin LISPRO 300 UNITS/3 ML VIAL SUBQ SCH ×7 (08:46→21:14)
[2021-04-08] MEDS: Metoprolol XL (24 HR) Succ 50 MG TAB.ER.24H PO SCH (08:47)
[2021-04-08] MEDS: Furosemide 40 MG TABLET PO SCH (08:47)
[2021-04-08 09:39] LABS: Alanine Aminotransferase 18 Units/L (7-52); Albumin 3.2 g/dL (3.5-5.7); Albumin/Globulin Ratio 1.1 (1.1-2.2); Alkaline Phosphatase 150 Units/L (34-104); Aspartate Amino Transferase 34 Units/L (13-39); BUN/Creatinine Ratio 22 (6-26); Bilirubin,Total 0.5 mg/dL (0.3-1.0); Blood Urea Nitrogen 17 mg/dL (8-23); Carbon Dioxide 25 mEq/L (23-29); Chloride 102 mEq/L (98-107); Globulin 2.9 g/dL (2.4-3.5); Glucose 304 mg/dL (70-105); Osmolality,Calculated 293 (280-300); Potassium 4.8 mEq/L (3.5-5.1); Sodium 135 mEq/L (136-145); Total Protein 6.1 g/dL (6.4-8.9); eGFR For African Americans > 60 (> 60); eGFR For Non-African Americans > 60 (> 60)
[2021-04-08 09:40] LABS: Hematocrit 33.1 % (35.3-44.9); Hemoglobin 9.9 g/dL (11.5-15.4); Immature Granulocytes % 0.6 % (0-4); Lymphocytes # 0.9 K/mcL (0.6-4.6); Lymphocytes % 12.1 %; Mean Corpuscular HGB Conc 29.9 g/dL (31.6-35.5); Mean Corpuscular Hemoglobin 26.6 pg (28.0-33.3); Monocytes # 0.6 K/mcL (0.0-1.3); Neutrophils # 5.6 K/mcL (1.6-8.9); Platelet Count 138 K/mcL (140-400); Red Blood Count 3.72 M/mcL (3.82-4.97); Segmented Neutrophils % 79.3 %
[2021-04-08 09:42] LABS: White Blood Count 7.1 K/mcL (4.3-11.1)
[2021-04-08] MEDS ORDERED: Acetaminophen 325 MG TABLET PO PRN (11:42)
[2021-04-08] MEDS: Chloraseptic Spray 177 ML BOTTLE MM PRN (17:43)
[2021-04-08] MEDS: Insulin DETEMIR 100 UNIT/ML X5UNITS SUBQ SCH (21:14)
[2021-04-09 01:54] LABS: Basophils % 0.1 %; Hematocrit 34.5 % (35.3-44.9); Hemoglobin 10.6 g/dL (11.5-15.4); Immature Granulocytes % 1.2 % (0-4); Lymphocytes # 1.1 K/mcL (0.6-4.6); Lymphocytes % 16.7 %; Mean Corpuscular HGB Conc 30.7 g/dL (31.6-35.5); Mean Platelet Volume 10.2 fL (9.4-12.4); Monocytes # 0.6 K/mcL (0.0-1.3); Neutrophils # 4.9 K/mcL (1.6-8.9); Platelet Count 154 K/mcL (140-400); Red Blood Count 3.92 M/mcL (3.82-4.97); Red Cell Distribution Width 16.7 % (11.5-14.5); White Blood Count 6.8 K/mcL (4.3-11.1)
[2021-04-09 02:05] LABS: Alanine Aminotransferase 18 Units/L (7-52); Albumin 3.3 g/dL (3.5-5.7); Albumin/Globulin Ratio 1.1 (1.1-2.2); Alkaline Phosphatase 138 Units/L (34-104); Aspartate Amino Transferase 36 Units/L (13-39); BUN/Creatinine Ratio 22 (6-26); Bilirubin,Total 0.5 mg/dL (0.3-1.0); Blood Urea Nitrogen 20 mg/dL (8-23); C-Reactive Protein 50 mg/L (Less than 10); Carbon Dioxide 25 mEq/L (23-29); Chloride 102 mEq/L (98-107); Globulin 2.9 g/dL (2.4-3.5); Glucose 245 mg/dL (70-105); Lactate Dehydrogenase 271 Units/L (140-271); Osmolality,Calculated 293 (280-300); Potassium 5.1 mEq/L (3.5-5.1); Sodium 136 mEq/L (136-145); Total Protein 6.2 g/dL (6.4-8.9); eGFR For African Americans > 60 (> 60); eGFR For Non-African Americans > 60 (> 60)
[2021-04-09 02:20] LABS: Ferritin 68 ng/mL (10-120)
[2021-04-09 02:24] LABS: D-Dimer 562 ng/mLFEU (0-500)
[2021-04-09] MEDS: Chloraseptic Spray 177 ML BOTTLE MM PRN (02:39)
[2021-04-09 04:04] LABS: Fibrinogen 610 mg/dL (169-393)
[2021-04-09] MEDS: *HR* Enoxaparin 40 MG/0.4 ML SYRINGE SQ SCH (06:27)
[2021-04-09] MEDS: Insulin LISPRO 300 UNITS/3 ML VIAL SUBQ SCH ×7 (09:05→20:38)
[2021-04-09] MEDS: Furosemide 40 MG TABLET PO SCH (09:06)
[2021-04-09] MEDS: Metoprolol XL (24 HR) Succ 50 MG TAB.ER.24H PO SCH (09:07)
[2021-04-09] MEDS: polyethylene glycoL 3350 17 GM POWD.PACK PO SCH (11:31)
[2021-04-09] MEDS: Insulin DETEMIR 100 UNIT/ML X5UNITS SUBQ SCH (20:37)
[2021-04-10 03:04] LABS: Alanine Aminotransferase 25 Units/L (7-52); Albumin 3.6 g/dL (3.5-5.7); Albumin/Globulin Ratio 1.1 (1.1-2.2); Alkaline Phosphatase 152 Units/L (34-104); Aspartate Amino Transferase 35 Units/L (13-39); BUN/Creatinine Ratio 26 (6-26); Bilirubin,Total 0.6 mg/dL (0.3-1.0); Blood Urea Nitrogen 26 mg/dL (8-23); Calcium 9.4 mg/dL (8.6-10.3); Carbon Dioxide 27 mEq/L (23-29); Chloride 99 mEq/L (98-107); Globulin 3.4 g/dL (2.4-3.5); Glucose 202 mg/dL (70-105); Osmolality,Calculated 293 (280-300); Sodium 136 mEq/L (136-145); eGFR For African Americans > 60 (> 60); eGFR For Non-African Americans 56 (> 60)
[2021-04-10 05:36] LABS: Basophils % 0.3 %; Hematocrit 35.2 % (35.3-44.9); Hemoglobin 10.7 g/dL (11.5-15.4); Immature Granulocytes % 1.2 % (0-4); Lymphocytes # 1.4 K/mcL (0.6-4.6); Lymphocytes % 21.7 %; Mean Corpuscular HGB Conc 30.4 g/dL (31.6-35.5); Mean Corpuscular Hemoglobin 26.7 pg (28.0-33.3); Mean Corpuscular Volume 87.8 fL (83.0-100.0); Mean Platelet Volume 10.8 fL (9.4-12.4); Monocytes # 0.7 K/mcL (0.0-1.3); Monocytes % 10.1 %; Neutrophils # 4.4 K/mcL (1.6-8.9); Platelet Count 181 K/mcL (140-400); Red Blood Count 4.01 M/mcL (3.82-4.97); Red Cell Distribution Width 16.2 % (11.5-14.5); Segmented Neutrophils % 66.7 %; White Blood Count 6.6 K/mcL (4.3-11.1)
[2021-04-10] MEDS: *HR* Enoxaparin 40 MG/0.4 ML SYRINGE SQ SCH (06:18)
[2021-04-10] MEDS: Furosemide 40 MG TABLET PO SCH (08:26)
[2021-04-10] MEDS: Metoprolol XL (24 HR) Succ 50 MG TAB.ER.24H PO SCH (08:26)
[2021-04-10] MEDS: polyethylene glycoL 3350 17 GM POWD.PACK PO SCH (08:27)
[2021-04-10] MEDS: Insulin LISPRO 300 UNITS/3 ML VIAL SUBQ SCH ×4 (08:27→12:16)
[2021-04-10 12:09] VITALS: BP 151/82; PULSE 63; TEMP 97.7
[2021-04-10 12:41] VITALS: O2SAT 96
[2021-04-10] MEDS ORDERED: Fluconazole 150 MG TABLET PO ONE (13:13)
== END 2021-04-10 16:02 | disposition home or self-care (01) | DRG 177 ==
LOC: EMEROOARM 23:31 → 3BNU 23:31 → SUATTDRO 04-07 03:03 → 3BNU 04-07 04:04 → SUATTDRO 04-08 13:39
PROVIDERS: ADMIT Internal Medicine; ATTEND Family Medicine